=== PATIENT | male | born 1990 | race American Indian/Alaskan Native ===

== ENCOUNTER 2021-06-27 11:37 | Emergency (ER) | payer SELFPAY ==
--- NOTE | 2021-06-27 12:29 | Emergency Department Report ---
ED N/V/D HPI - General Chief complaint: Nausea/Vomiting/Diarrhea Stated complaint: NAUSEA/VOMITING Time Seen by Provider: 06/27/21 12:08 Source: patient Mode of arrival: Ambulatory Limitations: No Limitations - History of Present Illness Initial comments: Chief complaint: "I keep vomiting." HPI: This a 31-year-old male with history of marijuana daily use who presents with nausea vomiting for 1 week. Onset Tuesday he has had constant vomiting mostly at nighttime. He felt as if he may have had food poisoning from a TV dinner. After one week, he still has vomiting. The vomiting is now consistently at night. He denies pain. Denies fever.He has smoked daily for the past 13 years. MD complaint: nausea, vomiting -: week(s) (1 week) Description of Vomiting: food contents Description of Diarrhea: other (No diarrhea) Associated Abdominal Pain: No Severity: mild Consistency: intermittent Improves with: none Worsens with: none Context: possible food poisoning Associated Symptoms: denies other symptoms - Related Data Previous Rx's Medication Instructions Recorded Last Taken Type Ondansetron [Zofran Odt] 4 mg PO Q8HR PRN #10 tab.rapdis 06/27/21 Unknown Rx Allergies Allergy/AdvReac Type Severity Reaction Status Date / Time No Known Allergies Allergy Verified 06/27/21 12:15 ED Review of Systems ROS: Stated complaint: NAUSEA/VOMITING Other details as noted in HPI Comment: All other systems reviewed and negative Constitutional: denies: chills, fever, malaise Respiratory: denies: cough, shortness of breath Gastrointestinal: nausea, vomiting. denies: abdominal pain, diarrhea ED Past Medical Hx - Past Medical History Previous Medical History?: No - Surgical History Past Surgical History?: No - Social History Smoking Status: Never Smoker Substance Use Type: None - Medications Home Medications: Home Medications Medication Instructions Recorded Confirmed Last Taken Type Ondansetron [Zofran Odt] 4 mg PO Q8HR PRN #10 tab.rapdis 06/27/21 Unknown Rx ED Physical Exam - General Limitations: No Limitations General appearance: alert, in no apparent distress - Head Head exam: Present: atraumatic, normocephalic - Eye Eye exam: Present: normal appearance - ENT ENT exam: Present: mucous membranes moist - Neck Neck exam: Present: normal inspection, full ROM - Respiratory Respiratory exam: Present: normal lung sounds bilaterally. Absent: respiratory distress, wheezes, rales, rhonchi - Cardiovascular Cardiovascular Exam: Present: regular rate, normal rhythm, normal heart sounds. Absent: systolic murmur, diastolic murmur, rubs, gallop - GI/Abdominal GI/Abdominal exam: Present: soft, normal bowel sounds. Absent: distended, tenderness, guarding, rebound - Rectal Rectal exam: Present: deferred - Extremities Exam Extremities exam: Present: normal inspection - Neurological Exam Neurological exam: Present: alert, oriented X3 - Psychiatric Psychiatric exam: Present: normal affect, normal mood - Skin Skin exam: Present: warm, dry, intact, normal color. Absent: rash ED Course Vital Signs 06/27/21 12:09 Temperature 98 F Pulse Rate 56 L Respiratory 16 Rate Blood Pressure 125/68 [Left] O2 Sat by Pulse 99 Oximetry ED Medical Decision Making - Medical Decision Making Clinical impression: Cannabinol hyperemesis syndrome. Patient did not have any abdominal pain or fever. Normal benign exam. Prescribe Zofran Critical care attestation.: If time is entered above; I have spent that time in minutes in the direct care of this critically ill patient, excluding procedure time. ED Disposition Clinical Impression: Cannabinoid hyperemesis syndrome Disposition: HOME / SELF CARE / HOMELESS Is pt being admited?: No Does the pt Need Aspirin: No Condition: Stable Instructions: What You Need to Know About Marijuana Use Prescriptions: Ondansetron [Zofran Odt] 4 mg PO Q8HR PRN #10 tab.rapdis PRN Reason: Nausea Referrals: JOEY KINNEY MD [Staff Physician] - 3-5 Days
[2021-06-27 13:07] VITALS: BP 128/75
== END 2021-06-27 15:09 | disposition home or self-care (01) ==
LOC: ED 11:37
DX: R11.2 Nausea with vomiting, unspecified (principal); Z79.899 Other long term (current) drug therapy
CPT/HCPCS: 99282

== ENCOUNTER 2021-06-28 10:39 | Emergency (ER) | payer SELFPAY ==
[2021-06-28] MEDS ORDERED: ONDANSETRON 4 MG/2 ML INJ ONE (13:26)
--- NOTE | 2021-06-28 13:58 | Event Note ---
ED Screening Note Date of service: 06/28/21 Time: 13:56 ED Screening Note: 31-year-old black male with no past medical history presents to the emergency department for evaluation of persistent nausea vomiting and abdominal pain. He states that symptoms started 5 days ago, he was seen here yesterday for same, but has not had any improvement. He denies fever. This initial assessment/diagnostic orders/clinical plan/treatment(s) is/are subject to change based on patients health status, clinical progression and re- assessment by fellow clinical providers in the ED. Further treatment and workup at subsequent clinical providers discretion. Patient/guardian urged not to elope from the ED as their condition may be serious if not clinically assessed and managed. Initial orders include: CBC, CMP, lipase, and UA.
[2021-06-28] MEDS ORDERED: diphenhydrAMINE 50 MG/ML VIAL IV ONE (14:53)
[2021-06-28] MEDS ORDERED: METOCLOPRAMIDE 10 MG/2 ML INJ IV ONE (14:53)
[2021-06-28] MEDS ORDERED: SODIUM CHLORIDE 0.9% 1000 ML 1,000 ML IV ONE (14:54)
[2021-06-28] MEDS ORDERED: MORPHINE 4 MG/1 ML INJ IV ONE (14:55)
--- NOTE | 2021-06-28 15:10 | Emergency Department Report ---
ED General Adult HPI - General Chief complaint: Nausea/Vomiting/Diarrhea Stated complaint: NAUSEA Time Seen by Provider: 06/28/21 15:04 Source: EMS Mode of arrival: Stretcher Limitations: No Limitations - History of Present Illness Initial comments: 31-year-old black male with no past medical history presents to the emergency department for evaluation of persistent nausea vomiting and abdominal pain. He states that symptoms started 5 days ago, he was seen here yesterday for same, but has not had any improvement. He denies fever. Patient was diagnosed with cannabinoid hyperemesis syndrome. He denies any hematemesis/coffee-ground emesis, [facility]/hematochezia, diarrhea, or fever. He rates his current abdominal pain as a 9/10 in severity. No prior history of abdominal surgeries per patient or other past medical Severity scale (0 -10): 10 - Related Data Previous Rx's Medication Instructions Recorded Last Taken Type Ondansetron [Zofran Odt] 4 mg PO Q8HR PRN #10 tab.rapdis 06/27/21 Unknown Rx Famotidine [Pepcid] 20 mg PO BID 10 Days #20 tablet 06/28/21 Unknown Rx Metoclopramide [Reglan] 10 mg PO TID PRN #30 tab 06/28/21 Unknown Rx diphenhydrAMINE [Benadryl CAP] 25 mg PO TID PRN #30 capsule 06/28/21 Unknown Rx Allergies Allergy/AdvReac Type Severity Reaction Status Date / Time No Known Allergies Allergy Verified 06/27/21 12:15 ED Review of Systems ROS: Stated complaint: NAUSEA Other details as noted in HPI Constitutional: malaise, weakness. denies: diaphoresis, fever Respiratory: denies: cough, shortness of breath Cardiovascular: denies: chest pain Gastrointestinal: abdominal pain, nausea, vomiting, constipation. denies: diarrhea, hematemesis, melena, hematochezia Genitourinary: denies: urgency, dysuria, frequency, hematuria, discharge Musculoskeletal: denies: back pain Neurological: denies: headache Hematological/Lymphatic: denies: swollen glands ED Past Medical Hx - Social History Smoking Status: Never Smoker Substance Use Type: None - Medications Home Medications: Home Medications Medication Instructions Recorded Confirmed Last Taken Type Ondansetron [Zofran Odt] 4 mg PO Q8HR PRN #10 tab.rapdis 06/27/21 Unknown Rx Famotidine [Pepcid] 20 mg PO BID 10 Days #20 tablet 06/28/21 Unknown Rx Metoclopramide [Reglan] 10 mg PO TID PRN #30 tab 06/28/21 Unknown Rx diphenhydrAMINE [Benadryl CAP] 25 mg PO TID PRN #30 capsule 06/28/21 Unknown Rx ED Physical Exam - General Limitations: No Limitations General appearance: alert, in no apparent distress - Head Head exam: Present: atraumatic, normocephalic - Eye Eye exam: Present: normal appearance. Absent: scleral icterus - Respiratory Respiratory exam: Present: normal lung sounds bilaterally. Absent: respiratory distress - Cardiovascular Cardiovascular Exam: Present: regular rate, normal rhythm - GI/Abdominal GI/Abdominal exam: Present: soft, tenderness (RLQ), normal bowel sounds. Absent: distended ED Course Vital Signs 06/28/21 15:33 Temperature 97.5 F L Pulse Rate 52 L Respiratory 16 Rate Blood Pressure 118/62 [Right] O2 Sat by Pulse 98 Oximetry ED Medical Decision Making - Lab Data Result diagrams: 06/28/21 14:31 06/28/21 14:31 Lab Results 06/28/21 06/28/21 06/28/21 Range/Units 14:31 14:31 16:45 WBC 5.4 (4.5-11.0) K/mm3 RBC 4.69 (3.65-5.03) M/mm3 Hgb 13.2 (11.8-15.2) gm/dl Hct 40.3 (35.5-45.6) % MCV 86 (84-94) fl MCH 28 (28-32) pg MCHC 33 (32-34) % RDW 13.1 L (13.2-15.2) % Plt Count 221 (140-440) K/mm3 Lymph % (Auto) 14.2 (13.4-35.0) % Gray % (Auto) 7.3 (0.0-7.3) % Eos % (Auto) 0.0 (0.0-4.3) % Baso % (Auto) 0.5 (0.0-1.8) % Lymph # (Auto) 0.8 L (1.2-5.4) K/mm3 Gray # (Auto) 0.4 (0.0-0.8) K/mm3 Eos # (Auto) 0.0 (0.0-0.4) K/mm3 Baso # (Auto) 0.0 (0.0-0.1) K/mm3 Seg Neutrophils % 78.0 H (40.0-70.0) % Seg Neutrophils # 4.2 (1.8-7.7) K/mm3 Sodium 139 (137-145) mmol/L Potassium 3.8 (3.6-5.0) mmol/L Chloride 101.0 (98-107) mmol/L Carbon Dioxide 23 (22-30) mmol/L Anion Gap 19 mmol/L BUN 15 (9-20) mg/dL Creatinine 1.1 (0.8-1.3) mg/dL Estimated GFR > 60 ml/min BUN/Creatinine Ratio 14 % Glucose 93 (75-100) mg/dL Calcium 9.7 (8.4-10.2) mg/dL Total Bilirubin 0.70 (0.1-1.2) mg/dL AST 19 (5-40) units/L ALT 14 (7-56) units/L Alkaline Phosphatase 64 (35-129) units/L Total Protein 7.7 (6.3-8.2) g/dL Albumin 4.7 (3.9-5) g/dL Albumin/Globulin Ratio 1.6 % Lipase 29 (13-60) units/L Urine Color Yellow (Yellow) Urine Turbidity Clear (Clear) Urine pH 7.0 (5.0-7.0) Ur Specific [place] 1.030 (1.003-1.030) Urine Protein 30 mg/dl (Negative) mg/dL Urine Glucose (UA) Neg (Negative) mg/dL Urine Ketones 80 (Negative) mg/dL Urine Blood Neg (Negative) Urine Nitrite Neg (Negative) Urine Bilirubin Neg (Negative) Urine Urobilinogen 4.0 (<2.0) mg/dL Ur Leukocyte Esterase Neg (Negative) Urine WBC (Auto) 3.0 (0.0-6.0) /HPF Urine RBC (Auto) 2.0 (0.0-6.0) /HPF Urine Bacteria (Auto) 1+ (Negative) /HPF Urine Mucus 3+ /HPF - Radiology Data Radiology results: report reviewed CT ABDOMEN AND PELVIS WITH IV CONTRAST, 06/28/2021 INDICATION: Lower abdominal pain and vomiting. TECHNIQUE: Following the administration of intravenous contrast, multiple axial CT images of the abdomen and pelvis were acquired. Sagittal and coronal reformats were obtained. All CT performed at this facility utilize dose reduction techniques including automated exposure control, iterative reconstruction and weight based dosing when appropriate to reduce patient radiation dose to as low as reasonably achievable. COMPARISON: None FINDINGS: Lung bases: Limited imaging of the bilateral lung bases demonstrates no focal abnormality. ABDOMEN: LIVER/BILE DUCTS: No significant abnormality. GALL BLADDER: No significant abnormality. STOMACH: The stomach is partially decompressed which limits evaluation. There is suspected generalized wall thickening. PANCREAS: No significant abnormality. SPLEEN: No significant abnormality. ADRENALS: No significant abnormality. RIGHT KIDNEY / URETER: No significant abnormality. LEFT KIDNEY / URETER: No significant abnormality. AORTA: The abdominal aorta is normal in caliber. SMALL AND LARGE BOWEL: Small and large bowel are normal in caliber. There is no evidence of bowel obstruction. APPENDIX: The appendix is visualized and appears normal. PELVIS: No free fluid is seen within the pelvis. The urinary bladder appears normal. BONES AND SOFT TISSUES: No significant abnormality. IMPRESSION: 1. No evidence of acute obstructive process within the abdomen or pelvis. 2. Suspected wall thickening of the stomach which may suggest gastritis. - Medical Decision Making 31-year-old black male with no past medical history presents to the emergency department for evaluation of persistent nausea vomiting and abdominal pain. He states that symptoms started 5 days ago, he was seen here yesterday for same, but has not had any improvement. He denies fever. Patient was diagnosed with cannabinoid hyperemesis syndrome. He denies any hematemesis/coffee-ground emesis, [facility]/hematochezia, diarrhea, or fever. He rates his current abdominal pain as a 9/10 in severity. No prior history of abdominal surgeries per patient or other past medical Dehydration noted with anion gap of 19. Labs are otherwise negative for any acute abnormalities. CT abdomen shows possible gastritis without other acute abnormalities. Vitals are normal and patient is nontoxic-appearing. Suspect patient symptoms are due to cannabinoid hyperemesis syndrome. Discussed importance of refraining from marijuana use and follow-up with primary care. Strict return precautions discussed in detail patient verbalized understanding Critical care attestation.: If time is entered above; I have spent that time in minutes in the direct care of this critically ill patient, excluding procedure time. ED Disposition Clinical Impression: Cannabinoid hyperemesis syndrome, Gastritis Disposition: HOME / SELF CARE / HOMELESS Is pt being admited?: No Condition: Stable Instructions: Gastritis, Adult, [id number], Cannabis Use Disorder Prescriptions: diphenhydrAMINE [Benadryl CAP] 25 mg PO TID PRN #30 capsule PRN Reason: Nausea Famotidine [Pepcid] 20 mg PO BID 10 Days #20 tablet Metoclopramide [Reglan] 10 mg PO TID PRN #30 tab PRN Reason: Nausea Referrals: JOEY KINNEY MD [Primary Care Provider] - 3-5 Days Forms: Work/School Release Form(ED)
[2021-06-28 15:34] VITALS: BP 118/62
[2021-06-28 15:46] LABS: Basophils % (Auto) 0.5 % (0.0-1.8); Hematocrit 40.3 % (35.5-45.6); Hemoglobin 13.2 gm/dl (11.8-15.2); Lymphocytes # (Auto) 0.8 K/mm3 (1.2-5.4); Lymphocytes % (Auto) 14.2 % (13.4-35.0); Mean Corpuscular HGB Conc 33 % (32-34); Mean Corpuscular Volume 86 fl (84-94); Monocytes # (Auto) 0.4 K/mm3 (0.0-0.8); Monocytes % (Auto) 7.3 % (0.0-7.3); Platelet Count 221 K/mm3 (140-440); Red Blood Count 4.69 M/mm3 (3.65-5.03); Red Cell Distribution Width 13.1 % (13.2-15.2)
[2021-06-28 15:59] LABS: Alanine Aminotransferase 14 units/L (7-56); Albumin 4.7 g/dL (3.9-5); BUN/Creatinine Ratio 14; Blood Urea Nitrogen 15 mg/dL (9-20); Calcium 9.7 mg/dL (8.4-10.2); Hemolysis Index 5
[2021-06-28 17:12] LABS: Bacteria,Urine 1+ /HPF (Negative); Bilirubin,Urine NEG (Negative); Blood,Urine NEG (Negative); Color,Urine Yellow (Yellow); Mucus,Urine 3+ /HPF
--- NOTE | 2021-06-28 18:01 | Cat Scan Report ---
CT ABDOMEN AND PELVIS WITH IV CONTRAST, 06/28/2021 INDICATION: Lower abdominal pain and vomiting. TECHNIQUE: Following the administration of intravenous contrast, multiple axial CT images of the abdo men and pelvis were acquired. Sagittal and coronal reformats were obtained. All CT performed at this facility utilize dose reduction techniques including automated exposure control, iterative reconstru ction and weight based dosing when appropriate to reduce patient radiation dose to as low as reasonab ly achievable. COMPARISON: None FINDINGS: Lung bases: Limited imaging of the bilateral lung bases demonstrates no focal abnormality. ABDOMEN: LIVER/BILE DUCTS: No significant abnormality. GALL BLADDER: No significant abnormality. STOMACH: The stomach is partially decompressed which limits evaluation. There is suspected generalize d wall thickening. PANCREAS: No significant abnormality. SPLEEN: No significant abnormality. ADRENALS: No significant abnormality. RIGHT KIDNEY / URETER: No significant abnormality. LEFT KIDNEY / URETER: No significant abnormality. AORTA: The abdominal aorta is normal in caliber. SMALL AND LARGE BOWEL: Small and large bowel are normal in caliber. There is no evidence of bowel obs truction. APPENDIX: The appendix is visualized and appears normal. PELVIS: No free fluid is seen within the pelvis. The urinary bladder appears normal. BONES AND SOFT TISSUES: No significant abnormality. IMPRESSION: 1. No evidence of acute obstructive process within the abdomen or pelvis. 2. Suspected wall thickening of the stomach which may suggest gastritis. Signer Name: Destinee Dexter MD Signed: 06/28/2021 5:57 PM Workstation Name: [id number]
[2021-06-28] MEDS ORDERED: PANTOPRAZOLE 40 MG INJ IV ONE (18:10)
== END 2021-06-28 18:22 | disposition home or self-care (01) ==
LOC: ED 10:39
DX: F12.188 Cannabis abuse with other cannabis-induced disorder (principal); K29.70 Gastritis, unspecified, without bleeding
CPT/HCPCS: 36415; 74177; 80053; 81001; 83690; 85025; 96361; 96374; 96375; 99284; J1200; J2270; J2405; J2765; J7030; Q9967; Q0162

== ENCOUNTER 2021-09-12 02:50 | Emergency (ER) | payer SELFPAY ==
[2021-09-12 03:29] VITALS: BP 119/72
--- NOTE | 2021-09-12 04:04 | XRay Report ---
RIGHT KNEE 4 VIEW(S) INDICATION / CLINICAL INFORMATION: INJURY COMPARISON: None available. FINDINGS: No fracture, dislocation, or significant soft tissue abnormality. No radiopaque foreign body. IMPRESSION: 1.No evidence of acute osseous pathology. Signer Name: Filipe Jaramillo II, MD Signed: 09/12/2021 3:59 AM Workstation Name: [id number]
== END 2021-09-13 06:36 | disposition left against medical advice (07) ==
LOC: ED 02:50
DX: S89.91XA Unspecified injury of right lower leg, initial encounter (principal); Z53.21 Procedure and treatment not carried out due to patient leaving prior to being seen by health care provider; X58.XXXA Exposure to other specified factors, initial encounter; Y93.89 Activity, other specified; Y92.89 Other specified places as the place of occurrence of the external cause; Y99.8 Other external cause status